=== PATIENT | female | born 1950 | race Caucasian/White ===

== ENCOUNTER 2017-10-31 07:05 | Inpatient (IN) | payer MEDICARE, OTHER ==
[~2017-10-31] VITALS: Ht 160 cm; Wt 74.8 kg
[~2017-10-31 07:05] MED LIST: ACET325; ALBU90OI6 INH; AMIT25; Amitriptyline100 MG PO; CALCIUM; CLOP75 PO; LEVFLO500 PO; LISI5; OXYACE5T PO; OXYC5 PO; PRAV20; PRAV20 PO; RXOXYACE PO; [UNRECOGNIZED DRUG - OTHER]
[2017-10-31] MEDS ORDERED: PRAV20 PO (07:33)
[2017-10-31] MEDS ORDERED: ESTR2 PO (07:33)
[2017-10-31] MEDS ORDERED: LISI20 PO (07:34)
[2017-10-31] MEDS ORDERED: Brovana15 MCG/2 M INH (07:34)
[2017-10-31] MEDS ORDERED: BREO ELLIPTA 21 EACH IH (07:34)
[2017-10-31] MEDS ORDERED: PRED20 PO (07:34)
[2017-10-31] MEDS ORDERED: AZIT250 PO (07:34)
[2017-10-31] MEDS ORDERED: BUDE.5 NEB (07:34)
[2017-10-31 07:42] LABS: PO2 Arterial 51.2 mmHg (80-100); pH Blood Arterial 7.43 (7.35-7.45)
[2017-10-31 08:04] LABS: BASOPHILS ABSOLUTE AUTO 0.06 K/mm3 (0.00-0.23); BASOPHILS PERCENT AUTO 1 % (0-2); EOSINOPHILS ABSOLUTE AUTO 0.01 K/mm3 (0.00-0.68); EOSINOPHILS PERCENT AUTO 0 % (0-6); Hematocrit 44.7 % (33.0-51.0); Hemoglobin 14.8 g/dL (11.5-16.0); IMMATURE GRAN ABSOLUTE AUTO 0.03 K/mm3 (0.00-0.10); IMMATURE GRAN PERCENT AUTO 0 % (0-1); LYMPHOCYTES PERCENT AUTO 17 % (21-46); MONOCYTES ABSOLUTE AUTO 1.09 K/mm3 (0.16-1.47); MONOCYTES PERCENT AUTO 16 % (4-13); Mean Corpuscular HGB 32.6 pg (26.0-34.0); Mean Corpuscular HGB Conc 33.1 g/dL (31.5-36.5); Mean Corpuscular Volume 99 fL (80-100); Mean Platelet Volume 10.7 fL (9.1-12.4); NEUTROPHILS ABSOLUTE AUTO 4.59 K/mm3 (1.96-9.15); NEUTROPHILS PERCENT AUTO 66 % (41-73); Platelet Count 176 K/mm3 (150-400); RDW Coefficient Variation 13.4 % (11.7-14.2); RDW Standard Deviation 48.1 fL (35.1-46.3); Red Blood Cell Count 4.54 M/mm3 (3.80-5.20); White Blood Cell Count 6.98 K/mm3 (4.00-11.30)
[2017-10-31 08:23] LABS: Alanine Aminotransfer (ALT/SGP 23 U/L (12-78); Albumin, Blood 3.5 g/dL (3.4-5.0); Alk Phos 72 U/L (50-136); Anion Gap 7 mmol/L (6-16); Aspartate Aminotrans (AST/SGOT 23 U/L (12-37); Bilirubin, Total 0.4 mg/dL (0.1-1.0); Blood Urea Nitrogen 12 mg/dL (8-24); Bun/Creatinine Ratio 16.3 (12.0-20.0); CO2, Blood 30 mmol/L (21-32); Calcium, Blood 8.4 mg/dL (8.5-10.1); Chloride, Blood 102 mmol/L (98-108); Creatinine, Blood 0.73 mg/dL (0.40-1.00); Globulin, Blood 3.5 g/dL (2.2-4.0); Glomerular Filtration Rate >60 (60-); Glucose, Blood 104 mg/dL (70-99); Potassium, Blood 3.7 mmol/L (3.5-5.5); Sodium, Blood 139 mmol/L (136-145); Troponin I <0.015 ng/mL (0.000-0.040)
[2017-10-31 08:53] LABS: Influenza A Negative (NEGATIVE); Influenza B Negative (NEGATIVE)
[2017-11-01 05:07] LABS: BASOPHILS ABSOLUTE AUTO 0.01 K/mm3 (0.00-0.23); BASOPHILS PERCENT AUTO 0 % (0-2); EOSINOPHILS PERCENT AUTO 0 % (0-6); Hemoglobin 13.8 g/dL (11.5-16.0); IMMATURE GRAN ABSOLUTE AUTO 0.02 K/mm3 (0.00-0.10); IMMATURE GRAN PERCENT AUTO 0 % (0-1); LYMPHOCYTES ABSOLUTE AUTO 0.73 K/mm3 (0.84-5.20); LYMPHOCYTES PERCENT AUTO 12 % (21-46); MONOCYTES ABSOLUTE AUTO 0.48 K/mm3 (0.16-1.47); MONOCYTES PERCENT AUTO 8 % (4-13); Mean Corpuscular HGB 32.3 pg (26.0-34.0); Mean Corpuscular HGB Conc 33.7 g/dL (31.5-36.5); NEUTROPHILS ABSOLUTE AUTO 5.09 K/mm3 (1.96-9.15); NEUTROPHILS PERCENT AUTO 80 % (41-73); Platelet Count 177 K/mm3 (150-400); RDW Coefficient Variation 12.9 % (11.7-14.2); RDW Standard Deviation 45.9 fL (35.1-46.3); Red Blood Cell Count 4.27 M/mm3 (3.80-5.20); White Blood Cell Count 6.33 K/mm3 (4.00-11.30)
[2017-11-01 05:09] LABS: Mean Corpuscular Volume 96 fL (80-100)
[2017-11-01 05:27] LABS: Anion Gap 6 mmol/L (6-16); Blood Urea Nitrogen 13 mg/dL (8-24); CO2, Blood 30 mmol/L (21-32); Calcium, Blood 8.5 mg/dL (8.5-10.1); Chloride, Blood 103 mmol/L (98-108); Creatinine, Blood 0.62 mg/dL (0.40-1.00); Glomerular Filtration Rate >60 (60-); Glucose, Blood 195 mg/dL (70-99); Potassium, Blood 3.9 mmol/L (3.5-5.5); Sodium, Blood 139 mmol/L (136-145)
[2017-11-01] MEDS ORDERED: Estradiol1 MG PO (08:38)
[2017-11-01] MEDS ORDERED: CALCIUM 600 +1 EAC4 PO (08:48)
[2017-11-01] MEDS ORDERED: Acidophilus La100 GM PO (08:49)
[2017-11-03] MEDS ORDERED: BUDE.5 NEB (15:18)
[2017-11-03] MEDS ORDERED: GUAI600T33 PO (15:19)
== END 2017-11-03 16:40 | disposition home or self-care (01) | DRG 192 ==
LOC: ER 07:05 → MEDS 10:38
PROVIDERS: Emergency Medicine; Hospitalist
DX: J44.1 Chronic obstructive pulmonary disease with (acute) exacerbation (principal); E78.5 Hyperlipidemia, unspecified; F17.200 Nicotine dependence, unspecified, uncomplicated; I10 Essential (primary) hypertension; Z88.0 Allergy status to penicillin; Z79.02 Long term (current) use of antithrombotics/antiplatelets; Z79.52 Long term (current) use of systemic steroids; Z79.899 Other long term (current) drug therapy
CPT/HCPCS: 36415; 36600; 71046; 80048; 80053; 82803; 83605; 84484; 85025; 87040; 87804; 93005; 93010; 94640; 94644; 94664; 94667; 94668; 94760; 94761; 96365; 96375; 98960; 99285; 99407; J0456; J0696; J1650; J2920; J2930; J7030; J7050; J7605

== ENCOUNTER 2023-10-18 07:48 | Inpatient (IN) | payer MEDICARE, OTHER ==
[~2023-10-18] VITALS: Ht 160 cm; Wt 63.3 kg
[~2023-10-18 07:48] MED LIST changes: +AZIT250 PO; +Acidophilus La100 GM PO; +BREO ELLIPTA 21 EACH IH; +BUDE.5 NEB; +Brovana15 MCG/2 M INH; +CALCIUM 600-VI1 EAC6 PO; +ESTR2 PO; +Estradiol1 MG PO; +GUAI600T33 PO; +LISI20 PO; +PRED20 PO; +Prednisone20 MG PO
[2023-10-18 08:38] LABS: BASOPHILS ABSOLUTE AUTO 0.02 K/mm3 (0.00-0.23); BASOPHILS PERCENT AUTO 0 % (0-2); EOSINOPHILS ABSOLUTE AUTO 0.02 K/mm3 (0.00-0.68); EOSINOPHILS PERCENT AUTO 0 % (0-6); Hematocrit 39.8 % (33.0-51.0); Hemoglobin 12.4 g/dL (11.5-16.0); IMMATURE GRAN ABSOLUTE AUTO 0.07 K/mm3 (0.00-0.10); IMMATURE GRAN PERCENT AUTO 1 % (0-1); LYMPHOCYTES ABSOLUTE AUTO 1.43 K/mm3 (0.84-5.20); LYMPHOCYTES PERCENT AUTO 12 % (21-46); MONOCYTES ABSOLUTE AUTO 0.87 K/mm3 (0.16-1.47); MONOCYTES PERCENT AUTO 7 % (4-13); Mean Corpuscular HGB 31.2 pg (26.0-34.0); Mean Corpuscular HGB Conc 31.2 g/dL (31.5-36.5); Mean Corpuscular Volume 100 fL (80-100); Mean Platelet Volume 10.7 fL (9.1-12.4); NEUTROPHILS ABSOLUTE AUTO 9.88 K/mm3 (1.96-9.15); NEUTROPHILS PERCENT AUTO 80 % (41-73); Platelet Count 261 K/mm3 (150-400); RDW Coefficient Variation 12.8 % (11.7-14.2); RDW Standard Deviation 47.6 fL (35.1-46.3); Red Blood Cell Count 3.98 M/mm3 (3.80-5.20); White Blood Cell Count 12.29 K/mm3 (4.00-11.30)
[2023-10-18 08:50] LABS: Albumin, Blood 3.2 g/dL (3.4-5.0); Albumin/Globulin Ratio 0.9 (0.8-1.8); Bilirubin, Total 0.3 mg/dL (0.1-1.0); Bun/Creatinine Ratio 24.4 (12.0-20.0); Calcium, Blood 9.3 mg/dL (8.5-10.1); Creatinine, Blood 0.82 mg/dL (0.40-1.00); Globulin, Blood 3.6 g/dL (2.2-4.0); Potassium, Blood 3.8 mmol/L (3.5-5.5); Total Protein, Blood 6.8 g/dL (6.4-8.2)
[2023-10-18] MEDS ORDERED: BREO ELLIPTA 11 EAC1 IH (08:51)
[2023-10-18] MEDS ORDERED: Prednisone10 MG PO (08:53)
[2023-10-18] MEDS ORDERED: YUPELRI175 MCG/1 IH (08:55)
[2023-10-18] MEDS ORDERED: PARO10 PO (08:55)
[2023-10-18] MEDS ORDERED: LORA10ER PO (08:55)
[2023-10-18] MEDS ORDERED: BUDESONIDE1 MG/2 M1 INH (14:42)
[2023-10-18 16:14] VITALS: BP 174/86
--- NOTE | 2023-10-18 18:37 | NUR ---
SHIFT SUMMARY: PT A/O X 4, STANDBY ASSIST, PLEASANT AND COOPERATIVE. CURRENTLY ON 5 LPM VIA NC WHICH IS BASELINE. PT SOB WITH EXERTION, DENIES CP OR PRESSURE ON ADMIT. TROPONINS CURRENTLY TRENDING DOWN. PT HAS ELEVATED BP IS ASYMPTOMATIC. PT DENIES NEED FOR BREATHING TX AT THIS TIME, IS WATCHING TV IN NO SIGNS OF RESPIRATORY DISTRESS. PER TELE IN NSR WITH PVC'S WITH RATE OF 74.
[2023-10-18 19:52] VITALS: BP 186/81
[2023-10-18 22:58] VITALS: BP 170/88
[2023-10-19 05:36] VITALS: BP 154/74
[2023-10-19 06:01] LABS: Hematocrit 35.9 % (33.0-51.0); Hemoglobin 11.4 g/dL (11.5-16.0); Mean Corpuscular HGB 31.8 pg (26.0-34.0); Mean Corpuscular HGB Conc 31.8 g/dL (31.5-36.5); Mean Corpuscular Volume 100 fL (80-100); Mean Platelet Volume 10.8 fL (9.1-12.4); Platelet Count 253 K/mm3 (150-400); RDW Coefficient Variation 12.6 % (11.7-14.2); RDW Standard Deviation 46.7 fL (35.1-46.3); Red Blood Cell Count 3.58 M/mm3 (3.80-5.20); White Blood Cell Count 9.65 K/mm3 (4.00-11.30)
[2023-10-19 06:25] LABS: Albumin, Blood 2.9 g/dL (3.4-5.0); Anion Gap 0 mmol/L (6-16); Blood Urea Nitrogen 24 mg/dL (8-24); Bun/Creatinine Ratio 32.4 (12.0-20.0); CO2, Blood 39 mmol/L (21-32); Calcium, Blood 9.2 mg/dL (8.5-10.1); Chloride, Blood 105 mmol/L (98-108); Creatinine, Blood 0.74 mg/dL (0.40-1.00); Glomerular Filtration Rate 86 (60-); Glucose, Blood 145 mg/dL (70-99); Magnesium, Blood 2.2 mg/dL (1.6-2.4); Phosphorus, Blood 3.8 mg/dL (2.5-4.9); Potassium, Blood 4.4 mmol/L (3.5-5.5); Sodium, Blood 144 mmol/L (136-145)
[2023-10-19 07:25] VITALS: BP 175/80
--- NOTE | 2023-10-19 07:30 | NUR ---
Shift Summary Pt independent in the room, on 5L O2. Her lungs are wheezy t/o which she states is normal. Pt on tele, remained in NSR t/o the night. No c/o of any pain or nausea. Her BP was significantly elevated last night at 186/81, called hospitalist who ordered 10 mg lisinopril now and 20 mg daily. 20 mg daily is her home dose. Pt AOx4.
[2023-10-19 15:57] VITALS: BP 155/83
--- NOTE | 2023-10-19 16:26 | NUR ---
PT IS A/OX4, PLEASANT AND COOPERATIVE, PT IS UP IND IN HER ROOM. THE PT APPEARS TO BE BREATHING EASILY AT REST ON 4L/MIN O2 SAT,S 100% PT STATES HER HOME O2 BASELINE IS 5L/MIN. PT REPORTED SOME MILD RIGHT SIDED CHEST PRESSURE RADIATING TO THE RIGHT SIDE OF HER NECK WHEN SHE WAS UP TO THE BATHROOM THIS AM. PT WAS STARTED ON THE RESTING PORTION OF HER STRESS TEST THIS AM. 2ND PORTION TOMORROW IN AM. CALL LIGHT IN REACH.
[2023-10-19 20:50] VITALS: BP 152/70
[2023-10-20] VITALS (11 sets, daily range): BP systolic 100–198; BP diastolic 58–122
--- NOTE | 2023-10-20 12:43 | NUR ---
PT TO UNIT AT APPROXIMATELY 1225 FROM MEDICAL FLOOR. HR AFIB W/RVR, EKG PERFORMED, MEDICATED PER EMAR. PT DENIES CHEST PAIN/PRESSURE. PT ON 5L 02 WHICH SHE SAID IS HER BASELINE, PT SAID SHE IS SOB AND THAT IS NORMAL FOR HER. CARDIOLOGY CONSULTED WITH PT. CURRENT PLAN IS FOR ANGIO TO BE PERFORMED TODAY OR TOMORROW. PT CURRENTLY RESTING IN BED TALKING WITH HER WHO IS AT BEDSIDE. CALL LIGHT WITHIN REACH.
[2023-10-20 13:19] LABS: Hematocrit 38.7 % (33.0-51.0); Hemoglobin 12.3 g/dL (11.5-16.0); Mean Platelet Volume 10.5 fL (9.1-12.4); Platelet Count 321 K/mm3 (150-400)
--- NOTE | 2023-10-20 13:45 | NUR ---
TRANSFER AT 1225 PT CONVERTED TO A-FIB WITH RVR THIS AM, LOPRESSOR IV WAS GIVEN TO SLOW THE HR WITH NO RESULTS. ORDERED FOR THE PT TO BE TRANSFERED TO PCU. REPORT WAS GIVEN TO ROOM PCU 14 NURSE. PT WAS TRANSFERED VIA WHEELCHAIR ACCOMPANIED BY HER
[2023-10-20 13:52] LABS: International Normalized Ratio 0.94; Prothrombin Time Results 9.9 Sec (9.7-11.5)
--- NOTE | 2023-10-20 14:28 | NUR ---
PT HEADING DOWN TO FINE HAIRER NOW.
--- NOTE | 2023-10-20 19:24 | NUR ---
DR. KAPOOR CONSULTED WITH PT BEFORE SHE WENT DOWN TO JUNIOR DATA ANALYST. HR WAS 130'S 140'S WHEN SHE ARRIVED TO UNIT, SHE DENIED CHEST PAIN/PRESSURE. PT'S BP WAS ELEVATED WHEN SHE ARRIVED TO UNIT, WRAP TURNER NOTIFIED AND PT MEDICATED PER EMAR. PT RETURNED FROM JUNIOR DATA ANALYST AT APPROXIMATELY 1630. ANGIO SITE R WRIST 0 HEMATOMA, 0 REDNESS, 0 TENDERNESS. TR BAND STILL IN PLACE. 2ML AIR REMOVED AT APPROXIMATELY 1815 AND 2 MORE REMOVED AT APPROXIMATELY 1920. PTS HR IS CURRENTLY 70'S-90'S, SHE CONTINUES TO DENY CHEST PAIN/PRESSURE. CARDIZEM DRIP WAS TITRATED DOWN. DR. KAPOOR NOTIFIED PTS HR IS STILL AFIB AND HER RATE HAS COME DOWN, HE SAID TO KEEP PT ON CARDIZEM DRIP UNTIL SHE CONVERTS. PT ON 4L NC WHICH IS HER BASELINE, SHE COMPLAINS OF SOB BUT SHE SAID SHE IS ALWAYS SOB. PT UP TO BATHROOM WITH SBA. PT IS CONTINENT. PT DENIES PAIN AT THIS TIME. SHE IS RESTING IN BED AND WATCHING TV. CALL LIGHT WITHIN REACH.
[2023-10-21 03:10] VITALS: BP 154/96
--- NOTE | 2023-10-21 04:04 | NUR ---
SHIFT SUMMARY. PT HAS BEEN DOING WELL THROUGHOUT SHIFT. AOX4, PLEASANT, COOPERATIVE WITH CARE. CARDIZEM DRIP WAS STOPPED EARLY IN SHIFT, HR HAS MAINTAINED <100 SINCE WITH BRIEF PERIODS OF TACHY DURING ONE COUGHING SESSION PT HAD AND DURING AMBULATION/TRANSFER. CARDIZEM STOP TIME DOCUMENTED WITHIN ICU FLOWSHEET PROCESS INTERVENTION. CONTINUES TO DENY ANY CHEST PAIN. SBA TRANSFER, PRIMARILY FOR LINE MANAGEMENT, PT CALLS APPROPRIATELY FOR ASSISTANCE. TR BAND WAS REMOVED EARLY THIS MORNING, COMPLETELY DEFLATED FOR SOME TIME BEFOREHAND. SITE REMAINS CLEAN, TEGADERM APPLIED AT SITE. PT CONTINUES TO DENY ANY PAIN AT THE SITE. BACKBOARD LEFT IN PLACE AND REINFORCED POST OP TEACHING REGARDING THE RWR. SATTING WELL ON 4 L O2 VIA NC THROUGHOUT SHIFT. BED LOCKED IN LOWEST POSITION. CALL LIGHT LEFT WITHIN REACH. CONTINUING TO MONITOR.
[2023-10-21 08:06] VITALS: BP 149/100
[2023-10-21 12:07] VITALS: BP 151/69
--- NOTE | 2023-10-21 12:25 | NUR ---
PT A&OX4, COOPERATIVE WITH CARE & ABLE TO MAKE NEEDS KNOWN. PHILLY. SHE IS ON 4L NC AND MAINTAINING 02 SATURATION ABOVE 90%, 5L IS PT'S BASELINE. PT REPORTS SOB, BUT SHE SAID SHE IS ALWAYS A LITTLE SOB, HX OF COPD. PT'S HR AT BEGINNING OF SHIFT WAS AFIB 70'S-130'S. OYSTER GRADER NURSE REPORTED CARDIZEM DRIP STOPPED DURING OYSTER GRADER B/C HR DOWN TO 60'S/70'S. I RESUMED CARDIZEM DRIP PER EMAR. MD'S NOTIFIED THAT CARDIZEM WAS STOPPED DURING OYSTER GRADER. PT CONVERTED TO SINUS RHYTHM AT APPROXIMATELY 0906 THIS MORNING. PT HAS DENIED CHEST PAIN/PRESSURE/DIZZINESS ALL SHIFT. DR. KAPOOR AND DR. SR BOTH IN TO SEE PT TODAY, PT DUE TO DISCHARGE TODAY. R RADIAL SITE FROM ANGIO HAS NO REDNESS/SWELLING AND IS SOFT AND NONTENER. 0 HEMATOMA PRESENT. PT WEARING ARM BOARD. IV TO L AC IS PATENT/FLUSHED/SALINE LOCKED. PT CURRENTLY VISITING WITH FAMILY IN ROOM AND CALL LIGHT WITHIN REACH.
[2023-10-21] MEDS ORDERED: Amiodarone HCl200 MG PO (12:53)
[2023-10-21] MEDS ORDERED: ELIQUIS5 M2 PO (12:54)
[2023-10-21] MEDS ORDERED: METO25ER PO (12:55)
[2023-10-21] MEDS ORDERED: VITAMIN D5000 UNIT PO (12:55)
--- NOTE | 2023-10-21 13:40 | NUR ---
PT DISCHARGED FROM UNIT AT APPROXIMATELY 1340. PT EDUCATED ON D/C INSTRUCTIONS AND ALL OF HERS AND HER HUSBANDS QUESTIONS WERE ANSWERED. PT LEFT WITH ALL OF HER BELONGINGS AND HER D/C PACKET. PT STABLE AT TIME OF TRANSFER. HER IS DRIVING HER. PT WHEELED OUT TO MEET HER VIA WHEELCHAIR BY ESTIMATOR PRINTING.
== END 2023-10-21 13:50 | disposition home or self-care (01) | DRG 246 ==
LOC: ER 07:48 → MEDS 14:47 → PCU 10-20 12:23
PROVIDERS: Emergency Medicine; Internal Medicine; ADMIT Internal Medicine
PROC: 027034Z Dilation of Coronary Artery, One Artery with Drug-eluting Intraluminal Device, Percutaneous Approach (ICD-10-PCS; principal; 2023-10-20)
PROC: 4A023N7 Measurement of Cardiac Sampling and Pressure, Left Heart, Percutaneous Approach (ICD-10-PCS; 2023-10-20)
PROC: B2111ZZ Fluoroscopy of Multiple Coronary Arteries using Low Osmolar Contrast (ICD-10-PCS; 2023-10-20)
PROC: 3E033GC Introduction of Other Therapeutic Substance into Peripheral Vein, Percutaneous Approach (ICD-10-PCS; 2023-10-20)
DX: I48.91 Unspecified atrial fibrillation (principal); I21.4 Non-ST elevation (NSTEMI) myocardial infarction; J96.21 Acute and chronic respiratory failure with hypoxia; J96.22 Acute and chronic respiratory failure with hypercapnia; R64 Cachexia; J44.1 Chronic obstructive pulmonary disease with (acute) exacerbation; D64.9 Anemia, unspecified; I10 Essential (primary) hypertension; I25.10 Atherosclerotic heart disease of native coronary artery without angina pectoris; E78.5 Hyperlipidemia, unspecified; Z66 Do not resuscitate; I73.9 Peripheral vascular disease, unspecified; Z99.81 Dependence on supplemental oxygen; Z90.5 Acquired absence of kidney; Z85.118 Personal history of other malignant neoplasm of bronchus and lung; Z95.828 Presence of other vascular implants and grafts; Z95.5 Presence of coronary angioplasty implant and graft; Z88.0 Allergy status to penicillin; Z79.52 Long term (current) use of systemic steroids; Z79.02 Long term (current) use of antithrombotics/antiplatelets; Z79.811 Long term (current) use of aromatase inhibitors; Z79.899 Other long term (current) drug therapy; Z90.710 Acquired absence of both cervix and uterus; Z90.49 Acquired absence of other specified parts of digestive tract; Z90.79 Acquired absence of other genital organ(s); Z90.722 Acquired absence of ovaries, bilateral; Z98.890 Other specified postprocedural states; Z92.3 Personal history of irradiation; Z87.891 Personal history of nicotine dependence; Z68.25 Body mass index [BMI] 25.0-25.9, adult
CPT/HCPCS: 36415; 71045; 71260; 76937; 78452; 80053; 80069; 83735; 83880; 84443; 84484; 85014; 85018; 85025; 85027; 85049; 85347; 85379; 85610; 85730; 93005; 93010; 93017; 93306; 93454; 94640; 94644; 94664; 94760; 94762; 96372; 96374; 96375; 96376; 97110; 97116; 97162; 99152; 99153; 99285-25; A9270; A9500; C1725; C1769; C1874; C1887; C1894; C9113; C9600; G0378; J0280; J1644; J1650; J2250; J2785; J2930; J3010; J7030; J7050; J7512; Q9967

== ENCOUNTER 2023-11-07 16:16 | Emergency (ER) | payer MEDICARE, OTHER ==
[~2023-11-07] VITALS: Ht 162.6 cm; Wt 61.2 kg
[~2023-11-07 16:16] MED LIST changes: +Amiodarone HCl200 MG PO; +BREO ELLIPTA 11 EAC1 IH; +BUDESONIDE1 MG/2 M1 INH; +ELIQUIS5 M2 PO; +LORA10ER PO; +METO25ER PO; +PARO10 PO; +Prednisone10 MG PO; +VITAMIN D5000 UNIT PO; +YUPELRI175 MCG/1 IH
[2023-11-07 16:38] LABS: BASOPHILS ABSOLUTE AUTO 0.04 K/mm3 (0.00-0.23); BASOPHILS PERCENT AUTO 1 % (0-2); EOSINOPHILS PERCENT AUTO 3 % (0-6); Hematocrit 38.9 % (33.0-51.0); Hemoglobin 12.6 g/dL (11.5-16.0); IMMATURE GRAN ABSOLUTE AUTO 0.02 K/mm3 (0.00-0.10); IMMATURE GRAN PERCENT AUTO 0 % (0-1); LYMPHOCYTES PERCENT AUTO 25 % (21-46); MONOCYTES ABSOLUTE AUTO 0.66 K/mm3 (0.16-1.47); MONOCYTES PERCENT AUTO 9 % (4-13); Mean Corpuscular HGB 31.3 pg (26.0-34.0); Mean Corpuscular HGB Conc 32.4 g/dL (31.5-36.5); Mean Corpuscular Volume 97 fL (80-100); Mean Platelet Volume 10.9 fL (9.1-12.4); NEUTROPHILS ABSOLUTE AUTO 4.37 K/mm3 (1.96-9.15); NEUTROPHILS PERCENT AUTO 62 % (41-73); Platelet Count 191 K/mm3 (150-400); RDW Coefficient Variation 13.2 % (11.7-14.2); Red Blood Cell Count 4.02 M/mm3 (3.80-5.20); White Blood Cell Count 7.09 K/mm3 (4.00-11.30)
[2023-11-07 16:57] LABS: Albumin, Blood 3.6 g/dL (3.4-5.0); Albumin/Globulin Ratio 0.9 (0.8-1.8); Bilirubin, Total 0.3 mg/dL (0.1-1.0); Bun/Creatinine Ratio 15.7 (12.0-20.0); Calcium, Blood 9.6 mg/dL (8.5-10.1); Creatinine, Blood 0.77 mg/dL (0.40-1.00); Globulin, Blood 3.9 g/dL (2.2-4.0); Potassium, Blood 3.9 mmol/L (3.5-5.5); Total Protein, Blood 7.5 g/dL (6.4-8.2)
[2023-11-07 20:00] LABS: Bicarbonate Venous 29.6 mmol/L (24.0-30.0); PCO2 Venous 55.8 mmHg (38-42); pH Blood Venous 7.37 (7.34-7.37)
[2023-11-07] MEDS ORDERED: FURO20 PO (21:58)
[2023-11-07] MEDS ORDERED: NITR.4SL SL (22:01)
[2023-11-08 00:46] VITALS: BP 172/61
== END 2023-11-08 01:01 | disposition home or self-care (01) ==
LOC: ER 16:16
PROVIDERS: Physician Assistant; Student in an Organized Health Care Education/Training Program
DX: R07.89 Other chest pain (principal); I11.0 Hypertensive heart disease with heart failure; I50.33 Acute on chronic diastolic (congestive) heart failure; R61 Generalized hyperhidrosis; I25.2 Old myocardial infarction; J44.9 Chronic obstructive pulmonary disease, unspecified; E78.5 Hyperlipidemia, unspecified; Z88.0 Allergy status to penicillin; Z79.52 Long term (current) use of systemic steroids; Z79.899 Other long term (current) drug therapy; Z79.01 Long term (current) use of anticoagulants; Z87.891 Personal history of nicotine dependence
CPT/HCPCS: 71046; 80053; 82803; 83880; 84484; 85025; 93005; 93010; 94640; 94664; 96374; 99285-25; A9270; J1940